=== PATIENT | male | born 1955 | race Two or more races ===

== ENCOUNTER 2021-06-12 07:16 | Emergency (ER) | payer OTHER ==
[2021-06-12 07:30] VITALS: BMI 27.2
[2021-06-12] MEDS ORDERED: FAMOTIDINE 20 MG/50 ML IVPB 20 MG/50 ML MG IVPB ONE ×2 (08:01→08:19)
[2021-06-12] MEDS ORDERED: methylPREDNISolone NA SUCC 125 MG/2 ML VIAL IVPUSH ONE (08:01)
[2021-06-12] MEDS ORDERED: methylPREDNISolone NA SUCC 125 MG/2 ML VIAL ONE (08:19)
[2021-06-12 11:07] VITALS: BP 168/78; PULSE 78; TEMP 98
== END 2021-06-12 11:34 | disposition home or self-care (01) ==
LOC: JER 07:16
PROC: 3E033GC Introduction of Other Therapeutic Substance into Peripheral Vein, Percutaneous Approach (ICD-10-PCS; principal; 2021-06-12)
DX: L23.9 Allergic contact dermatitis, unspecified cause (principal)
CPT/HCPCS: 99284-25